=== PATIENT | female | born 1965 | race African-American/Black ===

== ENCOUNTER 2020-12-25 09:14 | Emergency (ER) | payer OTHER ==
[~2020-12-25] VITALS: Ht 165.1 cm; Wt 64.0 kg
[2020-12-25] MEDS ORDERED: BACITRACIN ZINC OINT UDPKT TOP ONE (10:30)
[2020-12-25] MEDS ORDERED: KETOROLAC 60MG/2ML VIAL IM ONE (10:30)
[2020-12-25] MEDS ORDERED: IBUP-2029 MT (11:29)
[2020-12-25] MEDS ORDERED: CEPH500C2 MT (11:31)
[2020-12-25 12:19] VITALS: BP 127/78
== END 2020-12-25 12:22 | disposition home or self-care (01) ==
LOC: ER 09:14
DX: S40.021A Contusion of right upper arm, initial encounter (principal); S60.512A Abrasion of left hand, initial encounter; V29.49XA Motorcycle driver injured in collision with other motor vehicles in traffic accident, initial encounter; Y93.89 Activity, other specified; Y92.488 Other paved roadways as the place of occurrence of the external cause; R03.0 Elevated blood-pressure reading, without diagnosis of hypertension
CPT/HCPCS: 73130; 96372; 99283; J1885